=== PATIENT | female | born 1945 | race Caucasian/White ===

== ENCOUNTER 2019-02-03 12:46 | Outpatient (CLI) | payer BC, MEDICARE ==
--- NOTE | 2019-02-03 14:55 | MMO ---
Bilateral MAMMO Bilat Screen [facility]. CLINICAL HISTORY: Patient is 73 years old and is seen for screening. The patient has no family history of breast cancer. The patient has no personal history of cancer. VIEWS: The views performed were: bilateral craniocaudal with tomosynthesis and bilateral mediolateral oblique with tomosynthesis. FILMS COMPARED: The present examination has been compared to prior imaging studies performed at [facility] on 01/09/2012, 02/11/2013, 05/04/2014, 02/14/2016 and 08/27/2017. MAMMOGRAM FINDINGS: The breasts are almost entirely fat. There are no suspicious masses, suspicious calcifications, or new areas of architectural distortion. IMPRESSION: THERE IS NO MAMMOGRAPHIC EVIDENCE OF MALIGNANCY. A ROUTINE FOLLOW-UP MAMMOGRAM IN 1 YEAR IS RECOMMENDED. THE RESULTS OF THIS EXAM WERE SENT TO THE PATIENT. ACR BI-RADS Category 1 - Negative MAMMOGRAPHY NOTE: 1. A negative mammogram report should not delay a biopsy if a dominant of clinically suspicious mass is present. 2. Approximately 10% to 15% of breast cancers are not detected by mammography. 3. Adenosis and dense breasts may obscure an underlying neoplasm.
== END 2019-02-03 12:47 | disposition home or self-care (01) ==
LOC: BICMAMMO 12:46
PROVIDERS: ATTEND Internal Medicine
DX: Z12.31 Encounter for screening mammogram for malignant neoplasm of breast (principal)
CPT/HCPCS: 77063; 77067

== ENCOUNTER 2019-06-23 12:58 | Outpatient (CLI) | payer BC, MEDICARE ==
--- NOTE | 2019-06-23 13:32 | RAD ---
XR Chest Pa Lat STANDARD HISTORY: Chest pain COMPARISON: None FINDINGS: The heart size is upper limits of normal. The lungs are well expanded without focal areas o f consolidation, pneumothorax or pleural effusions. There are degenerative changes spine. IMPRESSION: No radiographic evidence of acute cardiopulmonary process.
--- NOTE | 2019-06-23 13:51 | RAD ---
RIGHT RIB SERIES: Date: 06/23/19 HISTORY: Fall. Right-sided chest pain. FINDINGS/IMPRESSION: No right-sided rib fracture seen. There are degenerative changes in the acromioclavicular joint. POS: [id number]
== END 2019-06-23 12:59 | disposition home or self-care (01) ==
LOC: BICRAD 12:58
PROVIDERS: ATTEND Internal Medicine
DX: R07.9 Chest pain, unspecified (principal); Z91.81 History of falling; M19.011 Primary osteoarthritis, right shoulder
CPT/HCPCS: 71046

== ENCOUNTER 2020-12-30 10:49 | Outpatient (CLI) | payer BC, MEDICARE | END 2020-12-30 10:50 | disposition home or self-care (01) | LOC: BICMAMMO 10:49 | PROVIDERS: ATTEND Internal Medicine | DX: Z12.31 Encounter for screening mammogram for malignant neoplasm of breast (principal) | CPT/HCPCS: 77063; 77067 ==

== ENCOUNTER 2022-08-09 10:54 | Outpatient (CLI) | payer BC, MEDICARE | END 2022-08-09 10:55 | disposition home or self-care (01) | LOC: BICMAMMO 10:54 | PROVIDERS: ATTEND Internal Medicine | DX: Z12.31 Encounter for screening mammogram for malignant neoplasm of breast (principal) | CPT/HCPCS: 77063; 77067 ==